=== PATIENT | male | born 1985 | race Caucasian/White ===

== ENCOUNTER 2025-04-30 14:14 | Outpatient (AMB) | payer OTHER, SELFPAY ==
--- OUTSIDE RECORDS SUMMARY | 2025-04-30 14:17 | XMS_ITS | Clinical Summary ---
Author Organization [facility] Facility Address [address] [address] Care Team Providers Care Chemical Worker Name Role Phone Unavailable Primary Care Provider Unavailabl e Social History Tobacco Use Types Packs/Day Years Used Date Smoking Tobacco: Never Assessed Sex and Gender Information Value Date Recorded Sex Assigned at Not on file Legal Sex Male 2:57 PM EDT Gender Identity Not on file Sexual Orientation Not on file Plan of Treatment Upcoming Encounters Date Type Department Care Team (Late st Contact Info) Description 05/27/2025 10:45 AM EDT Office Visit [facility] [address] [phone] Grey Roman MD [address] [phone] Health Maintenance Due Date Last Done Comments Hepatitis B Vaccine (1 of 3 - 19+ 3-dose series) 12/23 Pneumococcal Vaccine: Peds ( 0 to 5 Years) and At-Risk Patients (6 to 49 Years) (1 of 2 - PCV) 12/23/2002 Influenza Vaccine (#1) 2025 [place]
[2025-04-30 14:47] VITALS: BP 132/80; PULSE 65; O2SAT 97; BMI 24.7
--- NOTE | 2025-04-30 14:47 | HO.NEPHOV_ITS ---
Vital Signs 04/30/25 14:47 Height 5 ft 6 in Weight 153 lb BMI 24.7 BP 132/80 Blood Pressure Location Lt brachial Position Sitting Pulse 65 Pulse Source Pulse Oximeter Pulse Oximetry (%) 97 Oxygen Delivery Method Room Air Intake Visit Reasons: ENP: Hypertension- CONF Lawn Service Worker Required: Yes Lawn Service Worker Name: Sushant [id number] Accompanied by: Self / Same As Patient Allergies No Known Allergies Allergy (Verified 04/30/25 14:50) Medication List - Last Reconciled 04/30/25 by Goyo De La Fuente MD amlodipine 10 mg PO DAILY aspirin 81 mg PO DAILY atorvastatin 40 mg PO DAILY fluticasone propionate 50 mcg/actuation sprays intranasal losartan 100 mg PO DAILY spironolactone 25 mg PO DAILY HPI Comments Details: The patient is a 39-year-old male presenting for evaluation of severe hypertension and kidney function assessment. Hypertension has been present since age 13 and is difficult to control. Medication regimen is unclear to the patient. 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 Neurology consultation is pending. New antihypertensive medication prescribed but not yet started due to side effect concerns. Patient will consult healthcare provider upon medication arrival. [facility] Medical History (Updated 05/06/25 @ 06:37 by Kavita Callahan CMA) Hypercholesterolemia Acute CVA (cerebrovascular accident) Family History (Updated 04/30/25 @ 14:49 by RADHA Durham) Father Hypertension Mother Hypertension Review of Systems Const Denies anorexia, Denies fever(s) and Denies weakness Eyes Denies blurry vision Card Denies no additional complaints and Denies dyspnea Resp Reports no additional complaints, Reports cough and Denies dyspnea GI Denies melena and Denies diarrhea Denies hematuria Musc Denies tingling Skin/Breast Denies rash Neuro Reports Abnormal speech present, Reports focal weakness, Denies tingling, Denies tremor(s) and Denies weakness Physical Exam Vital Signs: Last Vital Signs Pulse 65 04/30/25 14:47 BP 132/80 04/30/25 14:47 Pulse Ox 97 04/30/25 14:47 Oxygen Delivery Method Room Air 04/30/25 14:47 BMI result Body Mass Index 24.7 Const General: comfortable Nutritional Appearance: well nourished Orientation/consciousness: patient oriented x3 HEENT Head: No normal to inspection Mouth: moist mucous membranes Neck Neck: Yes supple and Yes no JVD Resp Auscultation: clear to auscultation bilaterally, no rales and rub present Cardio Jugular venous distension: no JVD Palpation: no palpable S3 and no palpable S4 Heart sounds: no rubs GI Palpation (GI): Soft to palpation and nontender Percussion: No Fluid wave present General: Yes no CVA tenderness Back/Spine/Pelvis Back: no CVA tenderness Skin General skin exam: no rashes or lesions noted Neuro Other: Right sided weakness/stiffness General: patient oriented x3 Speech: Abnormal speech present Motor exam (neuro): no asterixis Extrem General: Yes no pedal edema and No clubbing Assessment & Plan Assessment & Plan (1) HTN (hypertension): Code(s): I10 - Essential (primary) hypertension Category: Medical Plan - Arrange 24-hour blood pressure monitoring. Keep current medications Stay on low-sodium diet. - Await neurology consultation for right-sided stiffness. Orders: Orders AMB 24 HR B/P Monitor PLACEMENT 04/30/25 I10 - Essential (primary) hypertension Total Protein Urine Random 4 Weeks I10 - Essential (primary) hypertension UA and rflx microscopic 4 Weeks I10 - Essential (primary) hypertension Basic Metabolic Panel 4 Weeks I10 - Essential (primary) hypertension Creatinine Urine 4 Weeks I10 - Essential (primary) hypertension Coding Level of Care Code New Pt Level 4 (83349) Diagnoses HTN (hypertension) I10
== END 2025-04-30 15:13 | disposition home or self-care (01) ==
LOC: HO.HKA 14:14
PROVIDERS: PCP Internal Medicine; Referring Provider Internal Medicine; Visit Provider Internal Medicine Hypertension Specialist
DX: I10 Essential (primary) hypertension (principal)
CPT/HCPCS: 99204

== ENCOUNTER → 2025-04-30 14:14 | Outpatient (BNVA) | payer OTHER, SELFPAY | PROVIDERS: PCP Internal Medicine; Referring Provider Internal Medicine; Visit Provider Internal Medicine Hypertension Specialist | DX: I10 Essential (primary) hypertension (principal) | CPT/HCPCS: 99202 ==

== ENCOUNTER → 2025-05-11 14:09 | Outpatient (BNVA) | payer OTHER, SELFPAY | PROVIDERS: PCP Internal Medicine; Visit Provider Internal Medicine Hypertension Specialist | DX: I10 Essential (primary) hypertension (principal) | CPT/HCPCS: 93786; 93788 ==

== ENCOUNTER 2025-05-13 08:35 | Outpatient (AMB) | payer OTHER, SELFPAY ==
--- NOTE | 2025-05-13 08:50 | A.OFFVIS_ITS ---
Intake Visit Reasons: acute cva Allergies No Known Allergies Allergy (Verified 04/30/25 14:50) HPI Comments Details: The patient is a 39-year-old male presenting with a follow-up for recent cerebrovascular accident and management of hypertension. Mr. 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 This event took place during admission at [facility]. He is currently maintained on antihypertensive therapy, of which he is taking one undisclosed medication. The stroke resulted in left brain damage causing right-sided motor weakness, which is improving but details on recovery progress are limited. To complete his evaluation, it is necessary to obtain a CD of his brain imaging from the initial hospitalization. The focus of this follow-up includes assessing his recovery, ensuring that his blood pressure remains controlled, and possibly addressing any residual or ongoing neurological deficits that may remain post-hemorrhage. [facility] Medical History (Updated 05/13/25 @ 09:08 by David Lazo MD) Hypercholesterolemia Acute CVA (cerebrovascular accident) Family History (Updated 04/30/25 @ 14:49 by RADHA Durham) Father Hypertension Mother Hypertension Review of Systems Const Details: - Neurological: Reports right hemiparesis. Denies current motor or sensory symptoms on the left side. - Cardiovascular: Reports history of hypertension. Physical Exam Neuro Other: Mental Status: Alert and oriented to person, place, and time. Normal attention. Normal spontaneous speech, fluency, and comprehension. Cranial Nerves: CN II: Visual cooper full to confrontation, visual acuity intact. CN III, IV, : Pupils equal, round, reactive to light and accommodation. Extraocular movements are normal. CN V: Facial sensation is normal. CN VII: Facial movements symmetrical. CN VIII: Hearing intact to bedside conversation is normal. CN IX, X: Palate elevates symmetrically. CN XI: Shoulder shrug and head turn symmetrical. CN XII: Tongue midline without atrophy or fasciculations. Motor: Mild right hemiparesis Gait and Station: Right hemiparetic gait Extrapyramidal: Full facial expressions and blinking. No rigidity. Movements are appropriate with no tremor or abnormality. Speech: Normal; no dysarthria or tremor. Assessment & Plan Assessment & Plan (1) Hemiparesis: Code(s): G81.90 - Hemiplegia, unspecified affecting unspecified side Category: Medical Qualifiers: Hemiparesis etiology: late effect of cerebrovascular disease Cerebrovascular disease type: other nontraumatic intracranial hemorrhage Hemiparesis laterality: right dominant side Qualified Code(s): I69.251 - Hemiplegia and hemiparesis following other nontraumatic intracranial hemorrhage affecting right dominant side Plan Impression: 39 years old man who according to some of the papers sent to me, most of them in Kazakh and difficult to interpret, had a left thalamic bleed when he was admitted in [facility]. Apparently bleed was related to uncontrolled hypertension in his brain scan also revealed evidence of previous microhemorrhages. His exam now revealed mild right hemiparesis. Recommendations: He is advised to obtain his brain scan CD from [facility] for review. In the meantime blood pressure control is recommended. PT OT and rehab should also continue. Coding Level of Care Code New Pt Level 4 (97708) Diagnoses Hemiparesis of right dominant side as late effect of other nontraumatic intracranial hemorrhage I69.251 Hemiparesis etiology: late effect of cerebrovascular disease Cerebrovascular disease type: other nontraumatic intracranial hemorrhage Hemiparesis laterality: right dominant side
--- OUTSIDE RECORDS SUMMARY | 2025-05-13 09:16 | XMS_ITS | Encounter Summary ---
Demographics Address [address] [place] [address] Home Phone Preferred Language es Marital Status Single Yazidi Affiliation Unknown Race Other Race Ethnic Group or Author Organization [employer] Address [address] [place] [address] Support Name Relationship Address Phone Kalie Rodriguez Emergency Contact Unknown [phone] Mis Llanes Unrelated friend Unknown [phone] Megan Guadarrama Mother [address] [place] [address] Care Team Providers Care Cashier General Name Role Phone Andres Rodríguez MD Primary Care Provider [phone] Encounter Details Date Type Department Care Team (Late st Contact Info) Description 05/07/2025 Telephone Internal Medicine - [place] [address] [place] [address] Andres Rodríguez MD [address] [place] [phone] Social History Tobacco Use Types Packs/Day Years Used Date Smoking Tobacco: Never Assessed Health Literacy Answer Date Recorded How often do you need to hav e someone help you when you read instructions, pamphlets, or other written material from your doctor or pharmacy? Sometimes 03/17/2025 Caregiver: How often do you need to have someone help you when you read instructions, pamphlets, or other written material from your doctor or pharmacy? Not on file 03/17/2025 Transportation Answer Date Recorded Has the lack of transportati on kept you from meetings, work, or from getting things needed for daily living? No Has the lack of transportati on kept you from medical appointments or from getting medications? No 02/26/2025 Social Isolation Answer Date Recorded How often do you feel lonely or isolated from th ose around you? Never 03/16/2025 Food Risk Answer Date Recorded Within the past 12 months we worried whether our food would run out before we got money to buy more. Never true 03/02/2025 Within the past 12 months th e food we bought just didn't last and we didn't have money to get more. Never true 03/02/2025 Interpersonal Safety Answer Date Record ed Physical Abuse 02/26/2025 Verbal Abuse 02/26/2025 Sex and Gender Information Value Date Recorded Sex Assigned at Male 02/25/2025 11:40 AM EDT Legal Sex Male 11:38 AM EDT Gender Identity Male 02/25/2025 11:40 AM EDT Sexual Orientation Choose not to disclose 2024 11:40 AM EDT documented as of this encounter Progress Notes * Luci Price MA - 05/11/2025 10:16 AM EDT Submitted for [address] [place] [address] * Jing Raul Walls - 05/07/2025 1:44 PM EDT [employer] new provider or submitter number is [id number] Verify and document patients [place] Health insurance ID # (NOT [facility] ID): [id number] Payor: COMMERCIAL INSURANCE / Plan: COMMERCIAL INSURANCE / Product Type: OTHER Patient mailing address: [address] [place] [address] Telephone Information: Work Phone Not on file. Mobile Not on file. Pt. demographics verified? yes If not accurate, update registration. Is this a NEW request or a RENEWAL? ne Name of treating facility: Dental office Name (first & last) of treating provider? : Dentist What is the medical reason why the patient is seeing the above provider? Exam and teeth cleaning Address/Zip code for treating provider: [address] [place] [address] Phone # for treating provider: [phone] Is the provider in the [facility] network (do they accept [place] insurance)? yes What specialtly is this provider? dental When is the visit scheduled for? May 13, 2025 @ 2:OOPM How often you will be seeing this particular provider? N/a Do you have friends or family who can transport you to this visit? nO If yes, do not complete request. Is there anything stopping you from using public transportation? If yes, explain. : STROKE Is there a medical reason (diagnosis) why you are unable to use public transportation? If yes, explain: STROKE - unable to ambulate without support Does patient carry self-administered oxygen? NO Does patient require door through door or room to room service( ex: member cannot ambulate or wait independently outside their home/facility for transportation. NO Is this is for an Adult Day Program or Suboxone clinic If yes to above what is arrival time n/a and what is departure time n/a If yes to above how many days a week? N/a Do you need a wheelchair van? Yes If you use a wheelchair what is the height, width & length of the wheelchair? Average Do you need an escort to accompany you? If yes, explain why. no Will you have an alternative pick-up address? no Do you have a service animal? no PT DOES NOT NEED RELEASE OF INFORMATION SIGNED documented in this encounter Plan of Treatment Upcoming Encounters Date Type Department Care Team (Late st Contact Info) Description 07/16/2025 9:45 AM EDT Office Visit Internal Medicine - [place] [address] [facility] [address] [place] [phone] Andres Rodríguez MD [address] [place] [phone] documented as of this encounter Visit Diagnoses Not on filedocumented in this encounter Additional Health Concerns Assessment Noted Time PHQ-9 Depression Total Score: 0 03/16/20 4:04 PM EDT documented as of this encounter Care Teams Cashier General Relationship Specialty Start Date End Date Andres Rodríguez MD [address] [place] [id number] PCP - General Internal Medicine 03/09/25 documented as of this encounter
--- OUTSIDE RECORDS SUMMARY | 2025-05-13 09:16 | XMS_ITS | Clinical Summary ---
Author Organization [facility] Address [address] [place] [address] Phone Care Team Providers Care Shipping And Receiving Specialist Name Role Phone Andres Rodríguez MD Primary Care Provider [phone] Allergies No known active allergies Medications fluticasone propionate (FLONASE) 50 mcg/actuation nasal spray Administer 2 sprays into each nostril 1 (one) time each day. Shake gently. Before first use, prime pump. After use, clean tip and replace cap. 16 g 03/17/20 25 Active hydrALAZINE (APRESOLINE) 50 mg tablet Take 1 tablet (50 mg total) by mouth 3 (three) times a day. 90 each 04/12/20 25 Active spironolactone (ALDACTONE) 25 mg tablet Take 1 tablet (25 mg total) by mouth 1 (one) time each day. 90 each 05/05/20 25 026 Active losartan (COZAAR) 100 mg tablet Take 1 tablet (100 mg total) by mouth 1 (one) time each day. 90 each 05/05/20 25 026 Active labetaloL (NORMODYNE) 200 mg tablet Take 1 tablet (200 mg total) by mouth 2 (two) times a day. 60 each 05/05/20 25 026 Active atorvastatin (LIPITOR) 40 mg tablet Take 1 tablet (40 mg total) by mouth at bedtime. 90 each 05/05/20 25 026 Active aspirin 81 mg EC tablet Take 1 tablet (81 mg total) by mouth 1 (one) time each day. 90 each 1 05/05/20 25 026 Active amLODIPine (NORVASC) 10 mg tablet Take 1 tablet (10 mg total) by mouth 1 (one) time each day. 90 tablet 05/05/20 Active amLODIPine (NORVASC) 10 mg tablet Take 1 tablet (10 mg total) by mouth 1 (one) time each day. 30 each 04/12/20 25 025 Discontinued(Re order) carvediloL (COREG) 25 mg tablet Take 1 tablet (25 mg total) by mouth 2 (two) times a day. Next due time listed as 2100 tonight 60 each 04/12/20 25 025 Discontinued losartan (COZAAR) 100 mg tablet Take 1 tablet (100 mg total) by mouth 1 (one) time each day. 30 each 04/12/20 25 025 Discontinued(Re order) aspirin 81 mg EC tablet Take 1 tablet (81 mg total) by mouth 1 (one) time each day. 04/20/20 025 Discontinued(Re order) atorvastatin (LIPITOR) 40 mg tablet Take 1 tablet (40 mg total) by mouth at bedtime. 04/20/20 25 025 Discontinued(Re order) spironolactone (ALDACTONE) 25 mg tablet Take 1 tablet (25 mg total) by mouth 1 (one) time each day. 04/20/20 25 025 Discontinued(Re order) amLODIPine (NORVASC) 10 mg tablet Take 1 tablet (10 mg total) by mouth 1 (one) time each day. 30 each 04/29/20 25 025 Discontinued aspirin 81 mg EC tablet Take 1 tablet (81 mg total) by mouth 1 (one) time each day. 90 each 1 04/29/20 25 025 Discontinued(Re order) atorvastatin (LIPITOR) 40 mg tablet Take 1 tablet (40 mg total) by mouth at bedtime. 90 each 1 04/29/20 25 025 Discontinued(Re order) losartan (COZAAR) 100 mg tablet Take 1 tablet (100 mg total) by mouth 1 (one) time each day. 90 each 04/29/20 25 025 Discontinued(Re order) spironolactone (ALDACTONE) 25 mg tablet Take 1 tablet (25 mg total) by mouth 1 (one) time each day. 90 each 04/29/20 25 025 Discontinued(Re order) labetaloL (NORMODYNE) 200 mg tablet Take 1 tablet (200 mg total) by mouth 2 (two) times a day. 60 each 04/29/20 25 025 Discontinued(Re order) amLODIPine (NORVASC) 10 mg tablet TAKE 1 TABLET BY MOUTH 1 TIME EACH DAY. 90 tablet 04/30/20 25 025 Discontinued(Re order) Active Problems Problem Noted Date Diagnosed Date Intracranial bleed ([facility] V24, [facility] V28) Encounters Date Type Department Care Team Description 05/11/2025 Telephone Internal Medicine [address] [phone] Andres Rodríguez MD 05/07/2025 Telephone Internal Medicine [address] [phone] Andres Rodrígeuz MD 05/06/2025 Telephone Internal Medicine [address] [phone] Andres Rodríguez MD 05/04/2025 Telephone Internal Medicine [address] [phone] Andres Rodríguez MD 04/29/2025 1:30 PM EDT Office Visit Internal Medicine [address] [phone] Andres Rodríguez MD Acute CVA (cerebrovascular accident) ([facility] V24, [facility] V28) (Primary Dx); Primary hypertension; Hypercholesterolemi a; Hospital discharge follow-up 04/27/2025 Telephone Internal Medicine [address] [phone] Andres Rodríguez MD 04/22/2025 Telephone Internal Medicine [facility] [address] [phone] Andres Rodríguez MD 04/21/2025 Telephone Internal Medicine [facility] [address] [phone] Andres Rodríguez MD 04/20/2025 Telephone Internal [address] [phone] Andres Rodríguez MD 04/12/2025 11:15 AM EDT Office Visit Internal [address] [phone] Andres Rodríguez MD Hospital discharge follow-up (Primary Dx); Thalamic hemorrhage with stroke ([facility] V24, [facility] V28); Hypertension, unspecified type; Normocytic anemia; Hearing loss associated with syndrome, unspecified laterality; Pedal edema 04/12/2025 Telephone Internal Medicine [address] [phone] Andres Rodríguez MD 03/17/2025 Plan of Care Documentation [facility] [address] [place] [phone] 03/10/2025 Plan of Care Documentation [facility] [address] [place] [address] 03/03/2025 Plan of Care Documentation [facility] [address] [place] [address] 02/26/2025 1:59 PM EDT - 03/18/2025 12:30 PM EDT Hospital Encounter [facility] [address] [place] [phone] Becky Benavidez DO Intracranial bleed ([facility] V24, [facility] V28) [I62.9] (Primary Dx) Discharge Disposition: Home-Health Care Svc from Last 3 Months Medical History Medical History Date Comments HTN (hypertension) CVA (cerebral vascular accident) (CMS/HCC V24, [facility] V28) Social History Tobacco Use Types Packs/Day Years [...] not to disclose 2024 11:40 AM EDT Obstetrics History Last Filed Vital Signs Vital Sign Reading Time Taken Comments Blood Pressure 160/90 04/29/2025 2:04 PM EDT Pulse 67 04/29/2025 2:04 PM EDT Temperature 36.9 C (98.5 F) 04/29/2025 2:04 PM EDT Respiratory Rate 16 03/18/2025 7:53 AM EDT Oxygen Saturation 98% 04/29/2025 2:04 PM EDT Inhaled Oxygen Concentration - - Weight 67 kg (147 lb 12.8 oz) 04/29/2025 2:04 PM EDT Height 165.1 cm (5' 5 ) 04/29/2025 2:04 PM EDT Body Mass Index 24.6 04/29/2025 2:04 PM EDT Plan of Treatment Upcoming Encounters Date Type Department Care Team (Late st Contact Info) Description 07/16/2025 9:45 AM EDT Office Visit Internal Medicine - [address] [place] [address] Andres Rodríguez MD [facility] [place] [address] Health Maintenance Due Date Last Done Comments DTaP,Tdap,and Td Vaccines (1 - Tdap) 12/23/2002 Hepatitis B Vaccines (1 of 3 - 19+ 3-dose series) 12/23/2002 COVID-19 Vaccine (1 - season) 2024 Cholesterol Screening (Lipid Panel) 02/25/2025 HIV Screening 02/25/2025 Hepatitis C Screening 02/25/2025 Influenza Vaccine (#1) 2025 Social Influencers of Health Screening 03/17/2026 03/17/2025 Hypertension/CHF/CAD Annual BMP Blood Test 03/18/2026 03/18/2025, 03/17/2025, 03/09/2025, Additional history exists Depression Screening Completed 03/16/2025 HIB Vaccines Aged Out No longer eligi ble based on patient's age to complete this topic HPV Vaccines Aged Out No longer eligi ble based on patient's age to complete this topic Hepatitis A Vaccines Aged Out No long er eligible based on patient's age to complete this topic IPV Vaccines Aged Out No longer eligi ble based on patient's age to complete this topic MMR Vaccines Aged Out No longer eligi ble based on patient's age to complete this topic Meningococcal ACWY Vaccine Aged Out N o longer eligible based on patient's age to complete this topic Meningococcal B Vaccine Aged Out No l onger eligible based on patient's age to complete this topic Pneumococcal Vaccine: Pediatrics (0 to 5 Years) and At-Risk Patients (6 to 49 Years) Aged Out No longer eligible based on patient's age to complete this topic RSV Immunization Patients Under 20 months Aged Out No longer eligible based on patient's age to complete this topic Varicella Vaccines Aged Out No longer eligible based on patient's age to complete this topic Procedures Procedure Name Priority Date/Time Associated Diagnosis Comments EXTERNAL CLINICAL LAB 03/24/2025 BASIC METABOLIC PANEL Routine 03/18/2025 6:20 AM EDT LAVENDER - EDTA Routine 03/18/2025 6:17 AM EDT EXTRA TUBES Routine 03/18/2025 6:17 AM EDT MAGNESIUM Add-On 03/17/2025 5:55 AM EDT COMPREHENSIVE METABOLIC PANEL Routine 03/17/2025 5:55 AM EDT COMPLETE BLOOD COUNT Routine 03/17/2025 5:[address] HEAD WO CONTRAST STAT 03/11/2025 3 :42 PM EDT CBC WITH AUTO DIFFERENTIAL Routine 03/09/2025 6:14 AM EDT MAGNESIUM Routine 03/09/2025 6:14 AM EDT CBC AND DIFFERENTIAL Routine 03/09/2025 6:14 AM EDT BASIC METABOLIC PANEL Routine 03/09/2025 6:14 AM EDT COMPLETE BLOOD COUNT Routine 03/04/2025 5:33 AM EDT COMPREHENSIVE METABOLIC PANEL Routine 03/04/2025 5:33 AM EDT COMPREHENSIVE METABOLIC PANEL Routine 03/01/2025 5:55 AM EDT COMPLETE BLOOD COUNT Routine 03/01/2025 5:55 AM EDT LAVENDER - EDTA Routine 02/28/2025 11:48 AM EDT EXTRA TUBES Routine 02/28/2025 11:48 AM EDT MAGNESIUM Routine 02/28/2025 11:48 AM EDT COMPREHENSIVE METABOLIC PANEL Add-On 02/27/2025 9:11 AM EDT COMPLETE BLOOD COUNT Add-On 02/27/2025 9:11 AM EDT LAVENDER - EDTA Routine 02/27/2025 9:11 AM EDT EXTRA TUBES Routine 02/27/2025 9:11 AM EDT THYROID STIMULATING HORMONE WITH REFLEX TO FREE T4 AND FREE T3 Routine 02/27/2025 9:11 AM EDT MAGNESIUM Routine 02/27/2025 9:11 AM EDT from Last 3 Months Results * External clinical lab (03/24/2025) Provider [facility] LAB BLOOD ORDERABLES Fin al Result * Basic metabolic panel (03/18/2025 6:20 AM EDT) Only the most recent of2 resultswithin the time period is included. Sodium 144 133 - 145 mmol/L LAB CHEMISTRY METHOD 03/18/2025 8:14 AM [facility] Potassium 3.7 3.5 - 5.5 mmol/L LAB CHEMISTRY METHOD 03/18/2025 8:14 AM [facility] Chloride 109 96 - 110 mmol/L LAB CHEMISTRY METHOD 03/18/2025 8:14 AM [facility] CO2 32 21 - 32 mmol/L LAB CHEMISTRY METHOD 03/18/2025 8:14 AM [facility] Anion Gap 3 3 - 11 LAB CHEMISTRY METHOD 03/18/2025 8:14 AM [facility] Glucose 86 70 - 100 mg/dL LAB CHEMISTRY METHOD 03/18/2025 8:14 AM [facility] BUN 16 5 - 25 mg/dL LAB CHEMISTRY METHOD 03/18/2025 8:14 AM EDT [facility] Creatinine 0.93 0.70 - 1.30 mg/dL LAB CHEMISTRY METHOD 03/18/2025 8:14 AM EDT [facility] eGFR 106 >=60 mL/min/1. 73m2 LAB CHEMISTRY METHOD 03/18/2025 8:14 AM EDT [facility] Comment:Calculation based on the Chronic Kidney Disease Epidemiology Collaboration (CKD-EPI) equation refit without adjustment for race. BUN/Creatinine Ratio 17.2 LAB CHEMISTRY METHOD 03/18/2025 8:14 AM EDT [facility] Calcium 9.1 8.5 - 10.5 mg/dL LAB CHEMISTRY METHOD 03/18/2025 8:14 AM EDT [facility] Blood Venous blood specimen / Unknown Venipuncture / Unknown 03/18/2025 6:20 AM EDT 03/18/2025 6:56 AM EDT us Anjali THORNTON LAB BLOOD ORDERABLES Final R esult [facility] [address] [place] [address], [place] [phone] * Lavender tube (03/18/2025 6:17 AM EDT) Only the most recent of3 resultswithin the time period is included. Extra Tube Hold for add-ons. 03/18/2025 8:01 AM EDT [facility] Comment:Auto resulted. Blood Venous blood specimen / Unknown 03/18/2025 6:17 AM EDT 03/18/2025 6:57 AM EDT us Becky Benavidez DO LAB BLOOD ORDERABLES Justine l Result [facility] [address] [place] [address], [place] [phone] * Magnesium (03/17/2025 5:55 AM EDT) Only the most recent of4 resultswithin the time period is included. [facility] Magnesium 2.1 1.9 - 2.6 mg/dL LAB CHEMISTRY METHOD 03/17/2025 7:39 AM EDT [facility] Blood Venous blood specimen / Unknown Venipuncture / Unknown 03/17/2025 5:55 AM EDT 03/17/2025 6:29 AM EDT us Anjali THORNTON LAB BLOOD ORDERABLES Final R esult [facility] [address] [place] [address], [place] [phone] * (ABNORMAL) Comprehensive metabolic panel (03/17/2025 5:55 AM EDT) Only the most recent of4 resultswithin the time period is included. [facility] Sodium 139 133 - 145 mmol/L LAB CHEMISTRY METHOD 03/17/2025 6:59 AM [facility] Potassium 3.3(L) 3.5 - 5.5 mmol/L LAB CHEMISTRY METHOD 03/17/2025 6:59 AM [facility] Chloride 104 96 - 110 mmol/L LAB CHEMISTRY METHOD 03/17/2025 6:59 AM [facility] CO2 30 21 - 32 mmol/L LAB CHEMISTRY METHOD 03/17/2025 6:59 AM [facility] Anion Gap 5 3 - 11 LAB CHEMISTRY METHOD 03/17/2025 6:59 AM [facility] Glucose 83 70 - 100 mg/dL LAB CHEMISTRY METHOD 03/17/2025 6:59 AM [facility] BUN 24 5 - 25 mg/dL LAB CHEMISTRY METHOD 03/17/2025 6:59 AM [facility] Creatinine 1.08 0.70 - 1.30 mg/dL LAB CHEMISTRY METHOD 03/17/2025 6:59 AM [facility] eGFR 88 >=60 mL/min/1. 73m2 LAB CHEMISTRY METHOD 03/17/2025 6:59 AM [facility] Comment:Calculation based on the Chronic Kidney Disease Epidemiology Collaboration (CKD-EPI) equation refit without adjustment for race. BUN/Creatinine Ratio 22.2 LAB CHEMISTRY METHOD 03/17/2025 6:59 AM T [facility] Calcium 9.7 8.5 - 10.5 mg/dL LAB CHEMISTRY METHOD 03/17/2025 6:59 AM [facility] AST (SGOT) 15 10 - 42 unit/L LAB CHEMISTRY METHOD 03/17/2025 6:59 AM [facility] ALT (SGPT) 51 10 - 60 unit/L LAB CHEMISTRY METHOD 03/17/2025 6:59 AM [facility] Alkaline Phosphatase 82 42 - 121 unit/L LAB CHEMISTRY METHOD 03/17/2025 6:59 AM [facility] Total Protein 7.2 6.0 - 8.0 g/dL LAB CHEMISTRY METHOD 03/17/2025 6:59 AM [facility] Albumin 3.9 3.2 - 5.0 g/dL LAB CHEMISTRY METHOD 03/17/2025 6:59 AM [facility] Total Bilirubin 0.4 0.0 - 1.4 mg/dL LAB CHEMISTRY METHOD 03/17/2025 6:59 AM [facility] Blood Venous blood specimen / Unknown Venipuncture / Unknown 03/17/2025 5:55 AM EDT 03/17/2025 6:29 AM EDT us Anjali THORNTON LAB BLOOD ORDERABLES Final R esult [facility] [address] [place] [address], * (ABNORMAL) Complete blood count (03/17/2025 5:54 AM EDT) Only the most recent of4 resultswithin the time period is included. [facility] WBC 9.8 4.8 - 10.8 K/mcL LAB HEMETOLOGY METHOD 03/17/2025 6:43 AM EDT [facility] RBC 4.00(L) 4.50 - 5.50 M/mcL LAB HEMETOLOGY METHOD 03/17/2025 6:43 AM EDT [facility] Hemoglobin 11.7(L) 13.5 - 17.5 g/dL LAB HEMETOLOGY METHOD 03/17/2025 6:43 AM EDT [facility] Hematocrit 35.2(L) 42.0 - 54.0 % LAB HEMETOLOGY METHOD 03/17/2025 6:43 AM EDT [facility] MCV 88.7 79.0 - 98.0 FL LAB HEMETOLOGY METHOD 03/17/2025 6:43 AM EDT [facility] MCH 29.5 27.0 - 32.0 pcg LAB HEMETOLOGY METHOD 03/17/2025 6:43 AM EDT [facility] MCHC 33.2 32.0 - 37.0 g/dL LAB HEMETOLOGY METHOD 03/17/2025 6:43 AM EDT [facility] RDW 11.9 11.0 - 15.0 % LAB HEMETOLOGY METHOD 03/17/2025 6:43 AM EDT [facility] Platelets 230 130 - 400 K/mcL LAB HEMETOLOGY METHOD 03/17/2025 6:43 AM EDT [facility] MPV 9.7 7.0 - 11.0 FL LAB HEMETOLOGY METHOD 03/17/2025 6:43 AM EDT [facility] NRBC 0.0 <1.0 % LAB HEMETOLOGY METHOD 03/17/2025 6:43 AM EDT [facility] NRBC Absolute 0.00 <0.10 K/mcL LAB HEMETOLOGY METHOD 03/17/2025 6:43 AM EDT [facility] Blood Venous blood specimen / Unknown Venipuncture / Unknown 03/17/2025 5:54 AM EDT 03/17/2025 6:31 AM EDT us Anjali THORNTON LAB BLOOD ORDERABLES Final R esult [facility] [address] [place] [address], [place] [phone] * CT Head wo Contrast (03/11/2025 3:42 PM EDT) Anatomical Region Laterality Modality Head and Neck Computed Tomogra phy 03/11/2025 3:47 PM EDT Impressions 03/11/2025 3:50 PM EDT There is no comparison examinations available at time of interpretation in this patient with given history of intracranial hemorrhage. Subacute left thalamic hemorrhage. No acute hemorrhage is evident. -------- FINAL REPORT -------- Dictated By: Satya Ovalle Dictated Date: 03/11/2025 15:47 ET Assigned Physician: Satya Ovalle Reviewed and Electronically Signed By: Satya Ovalle Signed Date: 03/11/2025 15:50 ET Workstation ID: [id number] Transcribed By: Self Edit Transcribed Date: 03/11/2025 15:47 ET Narrative 03/11/2025 3:50 PM EDT PROCEDURE: HEAD CT INDICATION: Parenchymal hemorrhage, follow-up new onset blurred vision with known recent Left basal ganglia/thalamic intraparenchymal hemorrhage TECHNIQUE: CT of the head without intravenous contrast. Multiplanar reformats. The examination was performed utilizing dose reduction techniques. Total DLP 809 COMPARISON: None available at time of interpretation. FINDINGS: There is a region of mixed density in the left thalamus compatible with given history of subacute/chronic hemorrhage with trace surrounding vasogenic edema.. There is no acute hemorrhage evident. There is no comparison examination of interpretation. No significant white matter disease No hydrocephalus. Cavum septum lucidum. Visualized paranasal sinuses are clear. Mastoid air cells are clear. No calvarial fracture. Procedure Note Satya Ovalle MD - 03/11/2025 PROCEDURE: HEAD CT INDICATION: Parenchymal hemorrhage, follow-up new onset blurred vision with known recent Left basal ganglia/thalamicintraparenchymal hemorrhage TECHNIQUE: CT of the head without intravenous contrast. Multiplanarreformats. The examination was performed utilizing dose reductiontechniques. Total DLP 809 COMPARISON: None available at time of interpretation. FINDINGS: There is a region of mixed density in the left thalamus compatible withgiven history of subacute/chronic hemorrhage with trace surroundingvasogenic edema.. There is no acute hemorrhage evident. There is nocomparison examination of interpretation. No significant white matter disease No hydrocephalus. Cavum septum lucidum. Visualized paranasal sinuses are clear. Mastoid air cells are clear. No calvarial fracture. IMPRESSION: There is no comparison examinations available at time of interpretation inthis patient with given history of intracranial hemorrhage. Subacute left thalamic hemorrhage. No acute hemorrhage is evident. -------- FINAL REPORT -------- Dictated By: Satya Ovalle Dictated Date: 03/11/2025 15:47 ET Assigned Physician: Satya Ovalle Reviewed and Electronically Signed By: Satya Ovalle Signed Date: 03/11/2025 15:50 ET Workstation ID: [id number] Transcribed By: Self Edit Transcribed Date: 03/11/2025 15:[address] PROCEDURES Final Resul t * (ABNORMAL) CBC auto differential (03/09/2025 6:14 AM EDT) WBC 10.1 4.8 - 10.8 [facility] HEMETOLOGY METHOD 03/09/2025 7:13 AM EDT [facility] RBC 4.00(L) 4.50 - 5.50 [facility] LAB HEMETOLOGY METHOD 03/09/2025 7:13 AM [facility] Hemoglobin 12.2(L) 13.5 - 17.5 g/dL LAB HEMETOLOGY METHOD 03/09/2025 7:13 AM [facility] Hematocrit 35.6(L) 42.0 - 54.0 % LAB HEMETOLOGY METHOD 03/09/2025 7:13 AM [facility] MCV 88.6 79.0 - 98.0 FL LAB HEMETOLOGY METHOD 03/09/2025 7:13 AM [facility] MCH 30.3 27.0 - 32.0 pcg LAB HEMETOLOGY METHOD 03/09/2025 7:13 AM [facility] MCHC 34.3 32.0 - 37.0 g/dL LAB HEMETOLOGY METHOD 03/09/2025 7:13 AM [facility] RDW 11.6 11.0 - 15.0 % LAB HEMETOLOGY METHOD 03/09/2025 7:13 AM [facility] Platelets 278 130 - 400 K/mcL LAB HEMETOLOGY METHOD 03/09/2025 7:13 AM [facility] MPV 9.6 7.0 - 11.0 FL LAB HEMETOLOGY METHOD 03/09/2025 7:13 AM [facility] NRBC 0.0 <1.0 % LAB HEMETOLOGY METHOD 03/09/2025 7:13 AM [facility] NRBC Absolute 0.00 <0.10 K/mcL LAB HEMETOLOGY METHOD 03/09/2025 7:13 AM [facility] Neutrophils Relative 46.6 % LAB HEMETOLOGY METHOD 03/09/2025 7:13 AM [facility] Lymphocytes Relative 39.5 % LAB HEMETOLOGY METHOD 03/09/2025 7:13 AM [facility] Monocytes Relative 10.8 % LAB HEMETOLOGY METHOD 03/09/2025 7:13 AM EDT [facility] Eosinophils Relative 2.4 % LAB HEMETOLOGY METHOD 03/09/2025 7:13 AM EDT [facility] Basophils Relative 0.4 % LAB HEMETOLOGY METHOD 03/09/2025 7:13 AM EDT [facility] Immature Granulocytes Relative 0.3 % LAB HEMETOLOGY METHOD 03/09/2025 7:13 AM EDT [facility] Neutrophils Absolute 4.68 1.50 - 7.00 K/mcL LAB HEMETOLOGY METHOD 03/09/2025 7:13 AM EDT [facility] Lymphocytes Absolute 3.97 1.00 - 5.00 K/mcL LAB HEMETOLOGY METHOD 03/09/2025 7:13 AM EDT [facility] Monocytes Absolute 1.09(H) 0.20 - 1.00 K/mcL LAB HEMETOLOGY METHOD 03/09/2025 7:13 AM EDT [facility] Eosinophils Absolute 0.24 0.00 - 0.50 K/mcL LAB HEMETOLOGY METHOD 03/09/2025 7:13 AM EDT [facility] Basophils Absolute 0.04 0.00 - 0.20 K/mcL LAB HEMETOLOGY METHOD 03/09/2025 7:13 AM EDT [facility] Immature Granulocytes Absolute 0.03 0.00 - 0.03 K/mcL LAB HEMETOLOGY METHOD 03/09/2025 7:13 AM [facility] Blood Venous blood specimen / Unknown Venipuncture / Unknown 03/09/2025 6:14 AM EDT 03/09/2025 6:35 AM EDT us Missy Tapia NP LAB BLOOD ORDERABLES Final Resul t [facility] [address] [place] [address], [place] [phone] * Thyroid stimulating hormone with reflex to free t4 and free t3 (02/27/2025 9:11 AM EDT) TSH 0.60 0.40 - 4.00 mcIU/mL LAB CHEMISTRY METHOD 02/27/2025 11:03 AM EDT [facility] Blood Venous blood specimen / Unknown Venipuncture / Unknown 02/27/2025 9:11 AM EDT 02/27/2025 9:18 AM EDT Terrie Quinn NP LAB BLOOD ORDERABLES Final Result [facility] [address] [place] [address], [place] [phone] from Last 3 Months Insurance [facility] Advance Directives Documents on File Type Date Recorded Patient Cloth Tester Expl anation Advance Directives and Living Will 02/26/2025 3:17 PM HEALTH CARE PROXY * Full Code - Default (Latest Code Status on File) Date Activated Date Inactivated Comments 02/26/2025 3:42 PM 03/18/2025 2:58 PM This is order is used when code status has not been discussed with the patient, or code status is otherwise unknown/unconfirmed To update the patient's code status, place a code status order. Do not modify or discontinue any currently active code status orders. Care Teams Shipping And Receiving Specialist Relationship Specialty Start Date End Date Andres Rodríguez MD [address] [place] [address] PCP - General Internal Medicine 03/09/25
--- OUTSIDE RECORDS SUMMARY | 2025-05-13 09:16 | XMS_ITS | Encounter Summary ---
Demographics Address [address] [place] [address] Home Phone Preferred Language es Marital Status Single Scientology Affiliation Unknown Race Other Race Ethnic Group or Author Organization [employer] Address [address] [place] [address] Support Name Relationship Address Phone Kalie Rodriguez Emergency Contact Unknown [phone] Mis Llanes Unrelated friend Unknown [phone] Megan Guadarrama Mother [address] [place] [address] Care Team Providers Care Agricultural Lender Name Role Phone Andres Rodríguez MD Primary Care Provider [phone] Reason for Visit * Reason Onset Date Comments Referral(manufacturing operations manager) 05/04/2025 Encounter Details Date Type Department Care Team ([facility] st Contact Info) Description 05/04/2025 Telephone Internal Medicine - [place] [address] [facility] [address] [place] [phone] Andres Rodríguez MD [address] [place] [phone] Social History Tobacco Use Types Packs/Day Years [...] as of this encounter Progress Notes * Gwen Mathew MA - 05/04/2025 2:25 PM EDT Spoke with pt. Pt requested this referral on his appt with PCP. Can you placed referral for ophtalmology? Please advice. * Elis Emerson - 05/04/2025 12:31 PM EDT Pt called and requested a referral to a manufacturing operations manager because he needs glasses due to not seeing well. Cb# [phone] documented in this encounter Plan of Treatment Upcoming Encounters Date Type Department Care Team (Late st Contact Info) Description 07/16/2025 9:45 AM EDT Office Visit Internal Medicine - [place] 175 [facility] 200 [place] [address] Andres Rodríguez MD [address] [place] [phone] documented as of this encounter Visit Diagnoses Not on filedocumented in this encounter Additional Health Concerns Assessment Noted Time PHQ-9 Depression Total Score: 0 03/16/20 25 4:04 PM EDT documented as of this encounter Care Teams Agricultural Lender Relationship Specialty Start Date End Date Andres Rodríguez MD 175 [facility] 200 [place] [address] PCP - General Internal Medicine 03/09/25 documented as of this encounter
--- OUTSIDE RECORDS SUMMARY | 2025-05-13 09:16 | XMS_ITS | Clinical Summary ---
Author Organization [facility] Address [address] [address] Care Team Providers Care Community Relations Assistant Name Role Phone Unavailable Primary Care Provider [...] Visit [facility] [address] [phone] Grey Roman MD [address] [phone] Health Maintenance Due Date Last Done Comments Hepatitis B Vaccine (1 of 3 - 19+ 3-dose series) 12/23 Pneumococcal Vaccine: Peds ( 0 to 5 Years) and At-Risk Patients (6 to 49 Years) (1 of 2 - PCV) 12/23/2002 Influenza Vaccine (#1) 2025 Insurance Medicaid [facility] Medicaid
--- OUTSIDE RECORDS SUMMARY | 2025-05-13 09:16 | XMS_ITS | Encounter Summary ---
Demographics Address [address] [place] [address] Home Phone Preferred Language es Marital Status Single Orthodoxy Affiliation Unknown Race Other Race Ethnic Group or Author Organization [employer] Address [address] [place] [address] Support Name Relationship Address Phone Kalie Rodriguez Emergency Contact Unknown [phone] Mis Llanes Unrelated friend Unknown [phone] Megan Guadarrama Mother [address] [place] [address] Care Team Providers Care Well Shooter Name Role Phone Andres Rodríguez MD Primary Care Provider [phone] Encounter Details Date Type Department Care Team (Late st Contact Info) Description 05/11/2025 Telephone Internal Medicine - [place] [address] [facility] [address] [place] [address] Andres Rodríguez MD [address] [place] [address] Social History Tobacco Use Types Packs/Day Years [...] as of this encounter Progress Notes * Jing Walls - 05/11/2025 9:44 AM EDT Patient called states PCP referred him to ent - assumed our office will schedule appt for him Howerver via supervisor special education provided [address] - phone number to call himself to schedule FYI documented in this encounter Plan of Treatment Upcoming Encounters Date Type Department Care Team (Late st Contact Info) Description 07/16/2025 9:45 AM EDT Office Visit Internal Medicine - [place] 175 [facility] 200 [place] [address] Andres Rodríguez MD [address] [place] [phone] documented as of this encounter Visit Diagnoses Not on filedocumented in this encounter Additional Health Concerns Assessment Noted Time PHQ-9 Depression Total Score: 0 03/16/20 25 4:04 PM EDT documented as of this encounter Care Teams Well Shooter Relationship Specialty Start Date End Date Andres Rodríguez MD [address] [address] PCP - General Internal Medicine 03/09/25 documented as of this encounter
== END 2025-05-13 09:06 | disposition home or self-care (01) ==
LOC: HO.HSM 08:36
PROVIDERS: PCP Internal Medicine; Visit Provider Psychiatry & Neurology Neurology
DX: I69.251 Hemiplegia and hemiparesis following other nontraumatic intracranial hemorrhage affecting right dominant side (principal)
CPT/HCPCS: 99204

== ENCOUNTER → 2025-05-13 08:35 | Outpatient (BNVA) | payer OTHER, SELFPAY | PROVIDERS: PCP Internal Medicine; Visit Provider Psychiatry & Neurology Neurology | DX: I69.251 Hemiplegia and hemiparesis following other nontraumatic intracranial hemorrhage affecting right dominant side (principal) | CPT/HCPCS: 99202 ==

== ENCOUNTER 2025-05-24 10:48 | Outpatient (AMB) | payer OTHER, SELFPAY ==
[2025-05-24 11:03] VITALS: BP 110/78; PULSE 74; O2SAT 100; BMI 25.0
--- NOTE | 2025-05-24 11:03 | HO.NEPHOV ---
Vital Signs 05/24/25 11:03 Height 5 ft 6 in Weight 155 lb BMI 25.0 BP 110/78 Blood Pressure Location Rt brachial Position Sitting Pulse 74 Pulse Source Pulse Oximeter Pulse Oximetry (%) 100 Oxygen Delivery Method Room Air Intake Visit Reasons: BPM Results Follow up-Conf In Flight Refueling System Repairer Required: Yes In Flight Refueling System Repairer Name: Minh [id number] Accompanied by: Self / Same As Patient Allergies No Known Allergies Allergy (Verified 04/30/25 14:50) Medication List - Last Reconciled 05/24/25 by Goyo De La Fuente MD amlodipine 10 mg PO DAILY aspirin 81 mg PO DAILY atorvastatin 40 mg PO DAILY fluticasone propionate 50 mcg/actuation sprays intranasal labetalol 200 mg PO BID losartan 100 mg PO DAILY spironolactone 25 mg PO DAILY HPI Comments Details: The patient is a 39-year-old male presenting for evaluation of severe hypertension and kidney function assessment. Hypertension has been present since age 13 and is difficult to control. Medication regimen is unclear to the patient. 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 Neurology consultation is pending. New antihypertensive medication prescribed but not yet started due to side effect concerns. Patient will consult healthcare provider upon medication arrival. 05/24/25 ABPM reviewed [facility] Medical History (Updated 05/13/25 @ 09:08 by David Lazo MD) Hypercholesterolemia Acute CVA (cerebrovascular accident) Family History Father Hypertension Mother Hypertension Physical Exam Vital Signs: Last Vital Signs Pulse 74 05/24/25 11:03 BP 110/78 05/24/25 11:03 Pulse Ox 100 05/24/25 11:03 Oxygen Delivery Method Room Air 05/24/25 11:03 BMI result Body Mass Index 25.0 Office Procedures 24 B/P Monitor Interpretation Details: Well controlled HTN No white coat effect CPT: 30838 24 Hour Blood Pressure Monitor Reading Procedure code (CPT) selection complete Assessment & Plan Assessment & Plan (1) HTN (hypertension): Code(s): I10 - Essential (primary) hypertension Category: Medical Plan - Arrange 24-hour blood pressure monitoring. Keep current medications Stay on low-sodium diet. - Await neurology consultation for right-sided stiffness. 05/24/25 BAsed on ABPM, BP is well controlled No change in meds today Renal function is stable Orders: Orders AMB 24 HR B/P Monitor INTERPRETATION Today I10 - Essential (primary) hypertension Coding Level of Care Code Est Pt Level 4 (61332) Diagnoses HTN (hypertension) I10 CPT Codes - CPT: 81718 24 Hour Blood Pressure Monitor Reading ([id number])
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
--- OUTSIDE RECORDS SUMMARY | 2025-05-24 13:09 | XMS_ITS | Encounter Summary ---
Demographics Address [address] [place] [address] Home Phone Preferred Language es Marital Status Single Taoist Affiliation Unknown Race Other Race Ethnic Group or Author Organization [employer] Address [address] [place] [address] Support Name Relationship Address Phone Kalie Rodriguez Emergency Contact Unknown [phone] Mis Llanes Unrelated friend Unknown [phone] Megan Guadarrama Mother [address] [place] [address] Care Team Providers Care Recreation Establishment Manager Name Role Phone Andres Rodríguez MD Primary Care Provider Encounter Details Date Type Department Care Team (Late st Contact Info) Description 05/13/2025 Telephone Internal Medicine - [place] [address] [place] [address] Andres Rodríguez MD [address] [place] [address] Social History Tobacco Use Types Packs/Day Years [...] encounter Progress Notes * Jing Walls - 05/14/2025 10:17 AM EDT Vna called - check with PCP if patient would benefit Occupational therapy Physical therapy as an out patient - request from [facility]. If so order to be placed documented in this encounter Plan of Treatment Upcoming Encounters Date Type Department Care Team (Late st Contact Info) Description 07/16/2025 9:45 AM EDT Office Visit Internal Medicine - [place] [address] [phone] Andres Rodríguez MD [address] [address] documented as of this encounter Visit Diagnoses Not on filedocumented in this encounter Additional Health Concerns Assessment Noted Time PHQ-9 Depression Total Score: 0 03/16/20 4:04 PM EDT documented as of this encounter Care Teams Recreation Establishment Manager Relationship Specialty Start Date End Date Andres Rodríguez MD [address] [address] PCP - General Internal Medicine 03/09/25 documented as of this encounter
--- OUTSIDE RECORDS SUMMARY | 2025-05-24 13:09 | XMS_ITS | Clinical Summary ---
Author Organization [facility] Address [address] [address] Care Team Providers Care Tire Layer Name Role Phone Andres Rodríguez MD Primary Care Provider [phone] Social History Tobacco Use Types Packs/Day Years [...] Visit [facility] [address] [phone] Grey Roman MD [address] [phone] Health Maintenance Due Date Last Done Comments Hepatitis B Vaccine (1 of 3 - 19+ 3-dose series) 12/23 Pneumococcal Vaccine: Peds ( 0 to 5 Years) and At-Risk Patients (6 to 49 Years) (1 of 2 - PCV) 12/23/2002 Influenza Vaccine (#1) 2025 Insurance Medicaid [place] [facility] Medicaid Care Teams Tire Layer Relationship Specialty Start Date End Date Andres Rodríguez MD 175 [facility] 200 [place] [address] PCP - General Internal Medicine 05/20/25
--- OUTSIDE RECORDS SUMMARY | 2025-05-24 13:09 | XMS_ITS | Encounter Summary ---
Demographics Address [address] [place] [address] Home Phone Preferred Language es Marital Status Single Catholic Affiliation Unknown Race Other Race Ethnic Group or Author Organization [employer] Address [address] [place] [address] Support Name Relationship Address Phone Kalie Rodriguez Emergency Contact Unknown [phone] Mis Llanes Unrelated friend Unknown [phone] Megan Guadarrama Mother [address] [place] [address] Care Team Providers Care Risk Investigator Name Role Phone Andres Rodríguez MD Primary Care Provider [phone] Encounter Details Date Type Department Care Team (Late st Contact Info) Description 05/11/2025 Telephone Internal Medicine - [place] [address] [place] [address] Andres Rodríguez MD [address] [place] [address] Social History Tobacco Use Types Packs/Day Years [...] will schedule appt for him Howerver via staff reporter provided [address] - phone number to call himself to schedule FYI documented in this encounter Plan of Treatment Upcoming Encounters Date Type Department Care Team (Late st Contact Info) Description 07/16/2025 9:45 AM EDT Office Visit Internal Medicine - [place] 175 [facility] 200 [place] [address] Andres Rodríguez MD [address] [address] documented as of this encounter Visit Diagnoses Not on filedocumented in this encounter Additional Health Concerns Assessment Noted Time PHQ-9 Depression Total Score: 0 03/16/20 4:04 PM EDT documented as of this encounter Care Teams Risk Investigator Relationship Specialty Start Date End Date Andres Rodríguez MD [address] [address] PCP - General Internal Medicine 03/09/25 documented as of this encounter
--- OUTSIDE RECORDS SUMMARY | 2025-05-24 13:09 | XMS_ITS | Encounter Summary ---
Demographics Address [address] [place] [address] Home Phone Preferred Language es Marital Status Single Mormonism Affiliation Unknown Race Other Race Ethnic Group or Author Organization [employer] Address [address] [place] [address] Support Name Relationship Address Phone Kalie Rodriguez Emergency Contact Unknown [phone] Mis Llanes Unrelated friend Unknown [phone] Megan Guadarrama Mother [address] [place] [address] Care Team Providers Care Garbage Depot Worker Name Role Phone Andres Rodríguez MD Primary Care Provider [phone] Reason for Visit * Reason Onset Date Comments Request For Order(s) 05/19/2025 Ronald Cavanaugh al Home Care Order 04/21/25 Encounter Details Date Type Department Care Team (Late st Contact Info) Description 05/19/2025 Telephone Internal Medicine - [place] [address] [facility] [address] [place] [address] Juana Lopes [place] Social History Tobacco Use Types Packs/Day Years [...] as of this encounter Progress Notes * Juana Lopes MA - 05/21/2025 1:38 PM EDT Re-Faxed Order * Jing Walls - 05/21/2025 10:25 AM EDT [facility]ide from [facility] - please look at the order that was signed and faxed Does it include order that patient is requesting out patient physical and occupational therapy Contact Fide [phone] * Juana Lopes MA - 05/20/2025 7:01 AM EDT [facility] Care Scanned into chart and faxed [phone] * Juana Lopes MA - 05/19/2025 9:43 AM EDT [facility] Order 04/21/25 Please sign & fax [phone] documented in this encounter Plan of Treatment Upcoming Encounters Date Type Department Care Team (Late st Contact Info) Description 07/16/2025 9:45 AM EDT Office Visit Internal Medicine - [address] [place] [address] Andres Rodríguez MD [address] [address] documented as of this encounter Visit Diagnoses Not on filedocumented in this encounter Additional Health Concerns Assessment Noted Time PHQ-9 Depression Total Score: 0 03/16/20 25 4:04 PM EDT documented as of this encounter Care Teams Garbage Depot Worker Relationship Specialty Start Date End Date Andres Rodríguez MD [address] [address] PCP - General Internal Medicine 03/09/25 documented as of this encounter
--- OUTSIDE RECORDS SUMMARY | 2025-05-24 13:09 | XMS_ITS | Clinical Summary ---
Author Organization [facility] Address [address] [place] [address] Phone Care Team Providers Care Roll Hauler Name Role Phone Andres Rodríguez MD Primary Care Provider [phone] Allergies No known active allergies Medications fluticasone [...] Problem Noted Date Diagnosed Date Intracranial bleed ([facility] V24, [facility] V28) Encounters Date Type Department Care Team Description 05/19/2025 Telephone Internal Medicine [address] [address] Juana Lopes [place] 05/14/2025 Telephone Internal Medicine [address] [address] Andres Rodríguez MD 05/13/2025 [place] [facility] [address] [address] Andres Rodríguez MD 05/11/2025 Telephone Internal Medicine [address] [address] Andres Rodríguez MD 05/07/2025 Telephone Internal Medicine [address] [address] Andres Rodríguez MD 05/06/2025 Telephone Internal Medicine [address] [address] Andres Rodríguez MD 05/04/2025 Telephone Internal Medicine [address] [address] Andres Rodríguez MD 04/29/2025 1:30 PM EDT Office Visit Internal Medicine [facility] [address] [address] Andres Rodríguez MD Acute CVA (cerebrovascular accident) (CMS/HCC V24, CMS/HCC V28) (Primary Dx); Primary hypertension; Hypercholesterolemi a; Hospital discharge follow-up 04/27/2025 Telephone Internal Medicine [facility] [address] [address] Andres Rodríguez MD 04/22/2025 Telephone Internal Medicine [address] [address] Andres Rodríguez MD 04/21/2025 Telephone Internal Medicine [address] [address] Andres Rodríguez MD 04/20/2025 Telephone Internal [address] [address] Andres Rodríguez MD 04/12/2025 11:15 AM EDT Office Visit Internal [address] [address] Andres Rodríguez MD Hospital discharge follow-up (Primary Dx); Thalamic hemorrhage with stroke (CMS/HCC V24, CMS/HCC V28); Hypertension, unspecified type; Normocytic anemia; Hearing loss associated with syndrome, unspecified laterality; Pedal edema 04/12/2025 Telephone Internal Medicine [address] [address] Andres Rodríguez MD 03/17/2025 Plan of Care Documentation [facility] [address] [place] [address] 03/10/2025 Plan of Care Documentation [facility] [address] [place] [address] 03/03/2025 Plan of Care Documentation [facility] [address] [place] [address] 02/26/2025 1:59 PM EDT - 03/18/2025 12:30 PM EDT Hospital Encounter [facility] [address] [place] [address] Becky Benavidez DO Intracranial bleed ([facility] V24, [facility] V28) [I62.9] (Primary Dx) Discharge Disposition: Home-Health Care Svc from Last 3 Months Medical History Medical History Date Comments HTN (hypertension) CVA (cerebral vascular accident) ([facility] V24, [facility] [place]/[facility] V28) Social History Tobacco Use Types [...] AM EDT Office Visit Internal Medicine - [place] 175 [facility] [address] [place] [phone] Andres Rodríguez MD 175 [facility] [address] [place] [address] Health Maintenance Due Date Last Done Comments DTaP,Tdap,and Td Vaccines (1 - Tdap) 12/23/2002 Hepatitis B Vaccines (1 of 3 - 19+ 3-dose series) 12/23/2002 Cholesterol Screening (Lipid Panel) 02/25/2025 HIV Screening 02/25/2025 Hepatitis C Screening 02/25/2025 COVID-19 Vaccine ( - season) 2025 Influenza Vaccine (#1) 2025 Social Influencers of [...] mmol/L LAB CHEMISTRY METHOD 03/18/2025 8:14 AM EDT [facility] Potassium 3.7 3.5 - 5.5 mmol/L LAB CHEMISTRY METHOD 03/18/2025 8:14 AM EDT [facility] Chloride 109 96 - 110 mmol/L LAB CHEMISTRY METHOD 03/18/2025 8:14 AM [facility] CO2 32 21 - 32 mmol/L LAB CHEMISTRY METHOD 03/18/2025 8:14 AM [facility] Anion Gap 3 3 - 11 LAB CHEMISTRY METHOD 03/18/2025 8:14 AM [facility] Glucose 86 70 - 100 mg/dL LAB CHEMISTRY METHOD 03/18/2025 8:14 AM [facility] BUN 16 5 - 25 mg/dL LAB CHEMISTRY METHOD 03/18/2025 8:14 AM [facility] Creatinine 0.93 0.70 - 1.30 mg/dL LAB CHEMISTRY METHOD 03/18/2025 8:14 AM [facility] eGFR 106 >=60 mL/min/1. 73m2 LAB CHEMISTRY METHOD 03/18/2025 8:14 AM [facility] Comment:Calculation based on the Chronic Kidney Disease Epidemiology Collaboration (CKD-EPI) equation refit without adjustment for race. BUN/Creatinine Ratio 17.2 LAB CHEMISTRY METHOD 03/18/2025 8:14 AM [facility] Calcium 9.1 8.5 - 10.5 mg/dL LAB CHEMISTRY METHOD 03/18/2025 8:14 AM [facility] Blood Venous blood specimen / Unknown Venipuncture / Unknown 03/18/2025 6:20 AM EDT 03/18/2025 6:56 AM EDT us Anjali THORNTON LAB BLOOD ORDERABLES Final R esult [facility] [address] [place] [address], * Lavender tube (03/18/2025 6:17 AM EDT) Only the most recent of3 resultswithin the time period is included. Extra Tube Hold for add-ons. 03/18/2025 8:01 AM EDT [facility] Comment:Auto resulted. Blood Venous blood specimen / Unknown 03/18/2025 6:17 AM EDT 03/18/2025 6:57 AM EDT Becky Benavidez DO LAB BLOOD ORDERABLES Justine l Result Performing Organization Address City/[facility]/ZIP Co de Phone Number [facility] [address] [place] [address], [place] [phone] * Magnesium (03/17/2025 5:55 AM EDT) Only the most recent of4 resultswithin the time period is included. [facility] Magnesium 2.1 1.9 - 2.6 mg/dL LAB CHEMISTRY METHOD 03/17/2025 7:39 AM EDT [facility] Blood Venous blood specimen / Unknown Venipuncture / Unknown 03/17/2025 5:55 AM EDT 03/17/2025 6:29 AM EDT Anjali Gray PA LAB BLOOD ORDERABLES Final R esult Performing Organization Address [facility] Co de Phone Number [facility] [address] [place] [address], [place] [phone] * (ABNORMAL) Comprehensive metabolic panel (03/17/2025 5:55 AM EDT) Only the most recent of4 resultswithin the time period is included. [facility] Sodium 139 133 - 145 mmol/L LAB CHEMISTRY METHOD 03/17/2025 6:59 AM EDT [facility] Potassium 3.3(L) 3.5 - 5.5 mmol/L LAB CHEMISTRY METHOD 03/17/2025 6:59 AM EDT [facility] Chloride 104 96 - 110 mmol/L LAB CHEMISTRY METHOD 03/17/2025 6:59 AM [facility] CO2 30 21 - 32 mmol/L LAB CHEMISTRY METHOD 03/17/2025 6:59 AM [facility] Anion Gap 5 3 - 11 LAB CHEMISTRY METHOD 03/17/2025 6:59 AM [facility] Glucose 83 70 - 100 mg/dL LAB CHEMISTRY METHOD 03/17/2025 6:59 AM [facility] BUN 24 5 - 25 mg/dL LAB CHEMISTRY METHOD 03/17/2025 6:59 AM [facility] Creatinine 1.08 0.70 - 1.30 mg/dL LAB CHEMISTRY METHOD 03/17/2025 6:59 AM [facility] eGFR 88 >=60 mL/min/1. 73m2 LAB CHEMISTRY METHOD 03/17/2025 6:59 AM [facility] Comment:Calculation based on the Chronic Kidney Disease Epidemiology Collaboration (CKD-EPI) equation refit without adjustment for race. BUN/Creatinine Ratio 22.2 LAB CHEMISTRY METHOD 03/17/2025 6:59 AM [facility] Calcium 9.7 8.5 - 10.5 mg/dL LAB CHEMISTRY METHOD 03/17/2025 6:59 AM [facility] AST (SGOT) 15 10 - 42 unit/L LAB CHEMISTRY METHOD 03/17/2025 6:59 AM [facility] ALT (SGPT) 51 10 - 60 unit/L LAB CHEMISTRY METHOD 03/17/2025 6:59 AM [facility] Alkaline Phosphatase 82 42 - 121 unit/L LAB CHEMISTRY METHOD 03/17/2025 6:59 AM [facility] Total Protein 7.2 6.0 - 8.0 g/dL LAB CHEMISTRY METHOD 03/17/2025 6:59 AM [facility] Albumin 3.9 3.2 - 5.0 g/dL LAB CHEMISTRY METHOD 03/17/2025 6:59 AM EDT [facility] Total Bilirubin 0.4 0.0 - 1.4 mg/dL LAB CHEMISTRY METHOD 03/17/2025 6:59 AM T [facility] Blood Venous blood specimen / Unknown Venipuncture / Unknown 03/17/2025 5:55 AM EDT 03/17/2025 6:29 AM EDT us Anjali THORNTON LAB BLOOD ORDERABLES Final R esult [facility] [address] [place] [address], * (ABNORMAL) Complete blood count (03/17/2025 5:54 AM EDT) Only the most recent of4 resultswithin the time period is included. WBC 9.8 4.8 - 10.8 K/mcL LAB HEMETOLOGY METHOD 03/17/2025 6:43 AM [facility] RBC 4.00(L) 4.50 - 5.50 M/mcL LAB HEMETOLOGY METHOD 03/17/2025 6:43 AM [facility] Hemoglobin 11.7(L) 13.5 - 17.5 g/dL LAB HEMETOLOGY METHOD 03/17/2025 6:43 AM [facility] Hematocrit 35.2(L) 42.0 - 54.0 % LAB HEMETOLOGY METHOD 03/17/2025 6:43 AM [facility] MCV 88.7 79.0 - 98.0 FL LAB HEMETOLOGY METHOD 03/17/2025 6:43 AM [facility] MCH 29.5 27.0 - 32.0 pcg LAB HEMETOLOGY METHOD 03/17/2025 6:43 AM [facility] MCHC 33.2 32.0 - 37.0 g/dL LAB HEMETOLOGY METHOD 03/17/2025 6:43 AM EDT [facility] RDW 11.9 11.0 - 15.0 % LAB HEMETOLOGY METHOD 03/17/2025 6:43 AM EDT [facility] Platelets 230 130 - 400 K/mcL LAB HEMETOLOGY METHOD 03/17/2025 6:43 AM EDT [facility] MPV 9.7 7.0 - 11.0 FL LAB HEMETOLOGY METHOD 03/17/2025 6:43 AM EDT [facility] NRBC 0.0 <1.0 % LAB HEMETOLOGY METHOD 03/17/2025 6:43 AM EDT [facility] NRBC Absolute 0.00 <0.10 K/mcL LAB HEMETOLOGY METHOD 03/17/2025 6:43 AM EDT [facility] Blood Venous blood specimen / Unknown Venipuncture / Unknown 03/17/2025 5:54 AM EDT 03/17/2025 6:31 AM EDT us Anjali THORNTON LAB BLOOD ORDERABLES Final R esult [facility] [address] [place] [address], [place] [phone] * CT Head wo Contrast (03/11/2025 3:42 [...] Signed Date: 03/11/2025 15:50 ET Workstation ID: [id number] Transcribed By: Self Edit Transcribed Date: 03/11/2025 [...] Signed Date: 03/11/2025 15:50 ET Workstation ID: [id number] Transcribed By: Self Edit Transcribed Date: 03/11/2025 15:47 ET Tatiana THORNTON IMG CT PROCEDURES Final Resul t * (ABNORMAL) CBC auto differential (03/09/2025 6:14 AM EDT) WBC 10.1 4.8 - 10.8 K/mcL LAB HEMETOLOGY METHOD 03/09/2025 7:13 AM [facility] RBC 4.00(L) 4.50 - 5.50 M/mcL LAB HEMETOLOGY METHOD 03/09/2025 7:13 AM [facility] Hemoglobin 12.2(L) 13.5 - 17.5 g/dL LAB HEMETOLOGY METHOD 03/09/2025 7:13 AM [facility] Hematocrit 35.6(L) 42.0 - 54.0 % LAB HEMETOLOGY METHOD 03/09/2025 7:13 AM [facility] MCV 88.6 79.0 - 98.0 FL LAB HEMETOLOGY METHOD 03/09/2025 7:13 AM [facility] MCH 30.3 27.0 - 32.0 pcg LAB HEMETOLOGY METHOD 03/09/2025 7:13 AM [facility] MCHC 34.3 32.0 - 37.0 g/dL LAB HEMETOLOGY METHOD 03/09/2025 7:13 AM [facility] RDW 11.6 11.0 - 15.0 % LAB HEMETOLOGY METHOD 03/09/2025 7:13 AM [facility] Platelets 278 130 - 400 K/mcL LAB HEMETOLOGY METHOD 03/09/2025 7:13 AM [facility] MPV 9.6 7.0 - 11.0 FL LAB HEMETOLOGY METHOD 03/09/2025 7:13 AM [facility] NRBC 0.0 <1.0 % LAB HEMETOLOGY METHOD 03/09/2025 7:13 AM [facility] NRBC Absolute 0.00 <0.10 K/mcL LAB HEMETOLOGY METHOD 03/09/2025 7:13 AM [facility] Neutrophils Relative 46.6 % LAB HEMETOLOGY METHOD 03/09/2025 7:13 AM [facility] Lymphocytes Relative 39.5 % LAB HEMETOLOGY METHOD 03/09/2025 7:13 AM [facility] Monocytes Relative 10.8 % LAB HEMETOLOGY METHOD 03/09/2025 7:13 AM [facility] Eosinophils Relative 2.4 % LAB HEMETOLOGY METHOD 03/09/2025 7:13 AM [facility] Basophils Relative 0.4 % LAB HEMETOLOGY METHOD 03/09/2025 7:13 AM [facility] Immature Granulocytes Relative 0.3 % LAB HEMETOLOGY METHOD 03/09/2025 7:13 AM [facility] Neutrophils Absolute 4.68 1.50 - 7.00 K/mcL LAB HEMETOLOGY METHOD 03/09/2025 7:13 AM [facility] Lymphocytes Absolute 3.97 1.00 - 5.00 K/mcL LAB HEMETOLOGY METHOD 03/09/2025 7:13 AM [facility] Monocytes Absolute 1.09(H) 0.20 - 1.00 K/mcL LAB HEMETOLOGY METHOD 03/09/2025 7:13 AM [facility] Eosinophils Absolute 0.24 0.00 - 0.50 K/mcL LAB HEMETOLOGY METHOD 03/09/2025 7:13 AM [facility] Basophils Absolute 0.04 0.00 - 0.20 K/mcL LAB HEMETOLOGY METHOD 03/09/2025 7:13 AM EDT [facility] Immature Granulocytes Absolute 0.03 0.00 - 0.03 K/mcL LAB HEMETOLOGY METHOD 03/09/2025 7:13 AM EDT [facility] Blood Venous blood specimen / Unknown Venipuncture / Unknown 03/09/2025 6:14 AM EDT 03/09/2025 6:35 AM EDT Missy Tapia [employer] LAB BLOOD ORDERABLES Final Resul t Performing Organization Address [facility]/ZIP Co de Phone Number [facility] [address] [place] [address], [place] [phone] * Thyroid stimulating hormone with reflex to free t4 and free t3 (02/27/2025 9:11 AM EDT) TSH 0.60 0.40 - 4.00 mcIU/mL LAB CHEMISTRY METHOD 02/27/2025 11:03 AM EDT [facility] Blood Venous blood specimen / Unknown Venipuncture / Unknown 02/27/2025 9:11 AM EDT 02/27/2025 9:18 AM EDT Terrie Quinn NP LAB BLOOD ORDERABLES Final Result Performing Organization Address [facility]/ZIP Co de Phone Number [facility] [address] [place] [address], [place] [phone] from Last [address] [place] [address] [place] [address] [employer]AN Advance Directives Documents on File Type Date Recorded Patient Molder Setter Expl anation Advance Directives and Living Will [...] currently active code status orders. Care Teams Roll Hauler Relationship Specialty Start Date End Date Andres Rodríguez MD 175 [facility] [address] [place] [address] PCP - General Internal Medicine 03/09/25
== END 2025-05-24 11:22 | disposition home or self-care (01) ==
LOC: HO.HKA 10:48
PROVIDERS: PCP Internal Medicine; Visit Provider Internal Medicine Hypertension Specialist
DX: I10 Essential (primary) hypertension (principal)
CPT/HCPCS: 93790; 99214

== ENCOUNTER → 2025-05-24 10:48 | Outpatient (BNVA) | payer OTHER, SELFPAY | PROVIDERS: PCP Internal Medicine; Visit Provider Internal Medicine Hypertension Specialist | DX: Z71.2 Person consulting for explanation of examination or test findings (principal); I10 Essential (primary) hypertension | CPT/HCPCS: 99212 ==

== ENCOUNTER 2025-05-25 14:49 | Outpatient (AMB) | payer OTHER, SELFPAY ==
--- NOTE | 2025-05-25 15:02 | MHC.OFFVIS ---
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 MRI of brain report suggested that he had a left thalamic capsular hemorrhage and few months later, a small ischemic left putamen area infarct. He continues to suffer for right hemiparesis. [facility] Medical History (Updated 05/25/25 @ 15:22 by David Lazo MD) Hypercholesterolemia Acute CVA (cerebrovascular accident) Family History Father Hypertension Mother Hypertension Review of Systems Const Details: Difficulty walking. Assessment & Plan Assessment & Plan (1) Hemiparesis: Comment: MRI brain WO at [facility] in Apr 2025: Small left putamen and powell radiata acute ischemic infarct, evolution of left thalamic hemorrhage of February 2025 (reported) Code(s): G81.90 - Hemiplegia, unspecified affecting unspecified side Category: Medical Qualifiers: Hemiparesis etiology: late effect of cerebrovascular disease Cerebrovascular disease type: other nontraumatic intracranial hemorrhage Hemiparesis laterality: right dominant side Qualified Code(s): I69.251 - Hemiplegia and hemiparesis following other nontraumatic intracranial hemorrhage affecting right dominant side (2) Thalamic hemorrhage: Code(s): I61.0 - Nontraumatic intracerebral hemorrhage in hemisphere, subcortical Category: Medical (3) Multiple cerebral infarctions: Code(s): I63.9 - Cerebral infarction, unspecified Category: Medical (4) Hypertensive cardiovascular disease or syndrome: Code(s): I11.9 - Hypertensive heart disease without heart failure Category: Medical Qualifiers: Heart failure presence: unspecified whether heart failure present Qualified Code(s): I11.9 - Hypertensive heart disease without heart failure Plan Impression: a: Hypertension related atherosclerotic cerebrovascular disease b: Left thalamic hemorrhage in February 2025 c: Left putaminal and powell radiata area small ischemic infarct in Apr 2025 d: Dysarthria and mild right hemiparesis from strokes Rec: a: Main issue is HTN and its management b: Continue a rehab or exercise program c: No smoking or alcohol drinking d: Once BP is controlled, a baby aspirin daily may also help to reduce some risk of stroke Coding Level of Care Code Est Pt Level 4 (87284) Diagnoses Hemiparesis of right dominant side as late effect of other nontraumatic intracranial hemorrhage I69.251 Hemiparesis etiology: late effect of cerebrovascular disease Cerebrovascular disease type: other nontraumatic intracranial hemorrhage Hemiparesis laterality: right dominant side Thalamic hemorrhage I61.0 Multiple cerebral infarctions I63.9 Hypertensive heart disease, unspecified whether heart failure present I11.9 Heart failure presence: unspecified whether heart failure present
[2025-05-25 15:16] VITALS: PULSE 77
--- OUTSIDE RECORDS SUMMARY | 2025-05-25 17:18 | XMS_ITS | Clinical Summary ---
Author Organization [facility] Facility Address [address] [address] Care Team Providers Care Shaper Operator Name Role Phone Andres Rodríguez MD Primary Care Provider [phone] Social History Tobacco Use Types Packs/Day Years [...] Visit [facility] [address] [phone] Grey Roman MD [address] [phone] Health Maintenance Due Date Last Done Comments Hepatitis B Vaccine (1 of 3 - 19+ 3-dose series) 12/23 Pneumococcal Vaccine: Peds ( 0 to 5 Years) and At-Risk Patients (6 to 49 Years) (1 of 2 - PCV) 12/23/2002 Influenza Vaccine (#1) 2025 Insurance Medicaid [facility] Medicaid Care Teams Shaper Operator Relationship Specialty Start Date End Date Andres Rodríguez MD 175 [facility] 200 [place] [address] PCP - General Internal Medicine 05/20/25
--- OUTSIDE RECORDS SUMMARY | 2025-05-25 17:18 | XMS_ITS | Encounter Summary ---
Demographics Address [address] [place] [address] Home Phone Preferred Language es Marital Status Single Hoahaoism Affiliation Unknown Race Other Race Ethnic Group or Author Organization [employer] Address [address] [place] [address] Support Name Relationship Address Phone Kalie Rodriguez Emergency Contact Unknown [phone] Mis Llanes Unrelated friend Unknown [phone] Megan Guadarrama Mother [address] [place] [address] Care Team Providers Care Diploma Maker Name Role Phone Andres Rodríguez MD Primary Care Provider [phone] Reason for Visit * Reason Onset Date Comments Referral(tankroom worker) 05/04/2025 Encounter Details Date Type Department Care Team ([facility] st Contact Info) Description 05/04/2025 Telephone Internal Medicine - [place] [address] [place] [phone] Andres Rodríguez MD 175 [facility] 200 [place] [address] Social History Tobacco Use Types Packs/Day Years [...] called and requested a referral to a tankroom worker because he needs glasses due to not seeing well. Cb# [phone] documented in this encounter Plan of Treatment Upcoming Encounters Date Type Department Care Team (Late st Contact Info) Description 07/16/2025 9:45 AM EDT Office Visit Internal Medicine - [place] 175 [facility] 200 [place] [address] Andres Rodríguez MD 175 [facility] 200 [place] [address] documented as of this encounter Visit Diagnoses Not on filedocumented in this encounter Additional Health Concerns Assessment Noted Time PHQ-9 Depression Total Score: 0 03/16/20 25 4:04 PM EDT documented as of this encounter Care Teams Diploma Maker Relationship Specialty Start Date End Date Andres Rodríguez MD [address] [address] PCP - General Internal Medicine 03/09/25 documented as of this encounter
--- OUTSIDE RECORDS SUMMARY | 2025-05-25 17:18 | XMS_ITS | Encounter Summary ---
Demographics Address [address] [place] [address] Home Phone Preferred Language es Marital Status Single Adventism Affiliation Unknown Race Other Race Ethnic Group or Author Organization [employer] Address [address] [place] [address] Support Name Relationship Address Phone Kalie Rodriguez Emergency Contact Unknown [phone] Mis Llanes Unrelated friend Unknown [phone] Megan Guadarrama Mother [address] [place] [address] Care Team Providers Care Cruller Maker Machine Name Role Phone Andres Rodríguez MD Primary Care Provider [phone] Reason for Visit * Reason Onset Date Comments Request For Order(s) 05/19/2025 Ronald Cavanaugh al Home Care Order 04/21/25 Encounter Details Date Type Department Care Team (Late st Contact Info) Description 05/19/2025 Telephone Internal Medicine - [place] [address] [address] [place] [address] Juana Lopes [place] Social History [...] - 05/21/2025 10:25 AM EDT [facility]ide from [facility] - please look at the order that was signed and faxed Does it include order that patient is requesting out patient physical and occupational therapy Contact Fide [phone] * Juana Lopes MA - 05/20/2025 7:01 AM EDT [facility] Care Scanned into chart and faxed [phone] * Juana Lopes MA - 05/19/2025 9:43 AM EDT [facility] Order 04/21/25 Please sign & fax [phone] documented in this encounter Plan of Treatment Upcoming Encounters Date Type Department Care Team (Late st Contact Info) Description 07/16/2025 9:45 AM EDT Office Visit Internal Medicine - [address] [place] [address] Andres Rodríguez MD [address] [address] documented as of this encounter Visit Diagnoses Not on filedocumented in this encounter Additional Health Concerns Assessment Noted Time PHQ-9 Depression Total Score: 0 03/16/20 25 4:04 PM EDT documented as of this encounter Care Teams Cruller Maker Machine Relationship Specialty Start Date End Date Andres Rodríguez MD [address] [address] PCP - General Internal Medicine 03/09/25 documented as of this encounter
--- OUTSIDE RECORDS SUMMARY | 2025-05-25 17:18 | XMS_ITS | Encounter Summary ---
Demographics Address [address] [place] [address] Home Phone Preferred Language es Marital Status Single Sikh Affiliation Unknown Race Other Race Ethnic Group or Author Organization [employer] Address [address] [place] [address] Support Name Relationship Address Phone Kalie Rodriguez Emergency Contact Unknown [phone] Mis Llanes Unrelated friend Unknown [phone] Megan Guadarrama Mother [address] [place] [address] Care Team Providers Care Mail Handlers Supervisor Name Role Phone Andres Rodríguez MD Primary Care Provider [phone] Encounter Details Date Type Department Care Team (Late st Contact Info) Description 05/11/2025 Telephone Internal Medicine - [place] [address] [place] [address] Andres Rodríguez MD [address] [place] [address] Social History Tobacco Use Types Packs/Day Years [...] will schedule appt for him Howerver via full time staff interpreter provided [address] - phone number to call himself to schedule FYI documented in this encounter Plan of Treatment Upcoming Encounters Date Type Department Care Team (Late st Contact Info) Description 07/16/2025 9:45 AM EDT Office Visit Internal Medicine - [place] 175 [facility] [address] [place] [address] Andres Rodríguez MD [address] [address] documented as of this encounter Visit Diagnoses Not on filedocumented in this encounter Additional Health Concerns Assessment Noted Time PHQ-9 Depression Total Score: 0 03/16/20 4:04 PM EDT documented as of this encounter Care Teams Mail Handlers Supervisor Relationship Specialty Start Date End Date Andres Rodríguez MD [address] [address] PCP - General Internal Medicine 03/09/25 documented as of this encounter
--- OUTSIDE RECORDS SUMMARY | 2025-05-25 17:18 | XMS_ITS | Clinical Summary ---
Author Organization [facility] Address [address] [place] [address] Phone Care Team Providers Care Appraiser Land Name Role Phone Andres Rodríguez MD Primary Care Provider [phone] Allergies No known active allergies Medications fluticasone [...] Problem Noted Date Diagnosed Date Intracranial bleed ([facility] V24, [facility] V28) Encounters Date Type Department Care Team Description 05/19/2025 Telephone Internal Medicine [address] [address] Juana Lopes [place] 05/14/2025 Telephone Internal Medicine [address] [address] Andres Rodríguez MD 05/13/2025 [place] [facility] [address] [address] Andres Rodríguez MD 05/11/2025 Telephone Internal Medicine [address] [address] Andres Rodríguez MD 05/07/2025 Telephone Internal Medicine [address] [address] Andres Rodríguez MD 05/06/2025 Telephone Internal Medicine [address] [address] Andres Rodríguez MD 05/04/2025 Telephone Internal Medicine [address] [address] Andres Rodríguez MD 04/29/2025 1:30 PM EDT Office Visit Internal Medicine [facility] [address] [address] Andres Rodríguez MD Acute CVA (cerebrovascular accident) (CMS/HCC V24, CMS/HCC V28) (Primary Dx); Primary hypertension; Hypercholesterolemi a; Hospital discharge follow-up 04/27/2025 Telephone Internal Medicine [facility] [address] [address] Andres Rodríguez MD 04/22/2025 Telephone Internal Medicine [address] [address] Andres Rodríguez MD 04/21/2025 Telephone Internal Medicine [address] [address] Andres Rodríguez MD 04/20/2025 Telephone Internal [address] [address] Andres Rodríguez MD 04/12/2025 11:15 AM EDT Office Visit Internal [address] [address] Andres Rodríguez MD Hospital discharge follow-up (Primary Dx); Thalamic hemorrhage with stroke (CMS/HCC V24, CMS/HCC V28); Hypertension, unspecified type; Normocytic anemia; Hearing loss associated with syndrome, unspecified laterality; Pedal edema 04/12/2025 Telephone Internal Medicine [address] [address] Andres Rodríguez MD 03/17/2025 Plan of Care Documentation [facility] [address] [place] [address] 03/10/2025 Plan of Care Documentation [facility] [address] [place] [address] 03/03/2025 Plan of Care Documentation [facility] [address] [place] [address] 02/26/2025 1:59 PM EDT - 03/18/2025 12:30 PM EDT Hospital Encounter [facility] [address] [place] [address] Becky Benavidez DO Intracranial bleed ([facility] V24, [facility] V28) [I62.9] (Primary Dx) Discharge Disposition: Home-Health Care Svc from Last 3 Months Medical History Medical History Date Comments HTN (hypertension) CVA (cerebral vascular accident) ([facility] V24, [facility] [place] V28) Social History Tobacco Use Types Packs/Day [...] AM EDT Office Visit Internal Medicine - [place] 175 [facility] [address] [place] [phone] Andres Rodríguez MD 175 [facility] [address] [place] [address] Health Maintenance Due Date Last Done Comments [...] LAB CHEMISTRY METHOD 03/18/2025 8:14 AM EDT [facility] Potassium 3.7 3.5 - 5.5 mmol/L LAB CHEMISTRY METHOD 03/18/2025 8:14 AM EDT [facility] Chloride 109 96 - 110 mmol/L LAB CHEMISTRY METHOD 03/18/2025 8:14 AM [facility] CO2 32 21 - 32 mmol/L LAB CHEMISTRY METHOD 03/18/2025 8:14 AM [facility] Anion Gap 3 3 - 11 LAB CHEMISTRY METHOD 03/18/2025 8:14 AM [facility] Glucose 86 70 - 100 mg/dL LAB CHEMISTRY METHOD 03/18/2025 8:14 AM [facility] BUN 16 5 - 25 mg/dL LAB CHEMISTRY METHOD 03/18/2025 8:14 AM [facility] Creatinine 0.93 0.70 - 1.30 mg/dL LAB CHEMISTRY METHOD 03/18/2025 8:14 AM [facility] eGFR 106 >=60 mL/min/1. 73m2 LAB CHEMISTRY METHOD 03/18/2025 8:14 AM [facility] Comment:Calculation based on the Chronic Kidney Disease Epidemiology Collaboration (CKD-EPI) equation refit without adjustment for race. BUN/Creatinine Ratio 17.2 LAB CHEMISTRY METHOD 03/18/2025 8:14 AM [facility] Calcium 9.1 8.5 - 10.5 mg/dL LAB CHEMISTRY METHOD 03/18/2025 8:14 AM [facility] Blood Venous blood specimen / Unknown Venipuncture / Unknown 03/18/2025 6:20 AM EDT 03/18/2025 6:56 AM EDT us Anjali THORNTON LAB BLOOD ORDERABLES Final R esult [facility] [address] [place] [address], * Lavender tube (03/18/2025 6:17 AM EDT) Only the most recent of3 resultswithin the time period is included. Extra Tube Hold for add-ons. 03/18/2025 8:01 AM EDT [facility] Comment:Auto resulted. Blood Venous blood specimen / Unknown 03/18/2025 6:17 AM EDT 03/18/2025 6:57 AM EDT Becky Benavidez DO LAB BLOOD ORDERABLES Justine l Result Performing Organization Address City/[facility]/ZIP Co de Phone Number [facility] [address] [place] [address], [place] [phone] * Magnesium (03/17/2025 5:55 AM EDT) Only the most recent of4 resultswithin the time period is included. [facility] Magnesium 2.1 1.9 - 2.6 mg/dL LAB CHEMISTRY METHOD 03/17/2025 7:39 AM EDT [facility] Blood Venous blood specimen / Unknown Venipuncture / Unknown 03/17/2025 5:55 AM EDT 03/17/2025 6:29 AM EDT Anjali Gray PA LAB BLOOD ORDERABLES Final R esult Performing Organization Address [facility] Co de Phone Number [facility] [address] [place] [address], [place] [phone] * (ABNORMAL) Comprehensive metabolic panel (03/17/2025 5:55 AM EDT) Only the most recent of4 resultswithin the time period is included. [facility] Sodium 139 133 - 145 mmol/L LAB CHEMISTRY METHOD 03/17/2025 6:59 AM EDT [facility] Potassium 3.3(L) 3.5 - 5.5 mmol/L LAB CHEMISTRY METHOD 03/17/2025 6:59 AM EDT [facility] Chloride 104 96 - 110 mmol/L LAB CHEMISTRY METHOD 03/17/2025 6:59 AM [facility] CO2 30 21 - 32 mmol/L LAB CHEMISTRY METHOD 03/17/2025 6:59 AM [facility] Anion Gap 5 3 - 11 LAB CHEMISTRY METHOD 03/17/2025 6:59 AM [facility] Glucose 83 70 - 100 mg/dL LAB CHEMISTRY METHOD 03/17/2025 6:59 AM [facility] BUN 24 5 - 25 mg/dL LAB CHEMISTRY METHOD 03/17/2025 6:59 AM [facility] Creatinine 1.08 0.70 - 1.30 mg/dL LAB CHEMISTRY METHOD 03/17/2025 6:59 AM [facility] eGFR 88 >=60 mL/min/1. 73m2 LAB CHEMISTRY METHOD 03/17/2025 6:59 AM [facility] Comment:Calculation based on the Chronic Kidney Disease Epidemiology Collaboration (CKD-EPI) equation refit without adjustment for race. BUN/Creatinine Ratio 22.2 LAB CHEMISTRY METHOD 03/17/2025 6:59 AM [facility] Calcium 9.7 8.5 - 10.5 mg/dL LAB CHEMISTRY METHOD 03/17/2025 6:59 AM [facility] AST (SGOT) 15 10 - 42 unit/L LAB CHEMISTRY METHOD 03/17/2025 6:59 AM [facility] ALT (SGPT) 51 10 - 60 unit/L LAB CHEMISTRY METHOD 03/17/2025 6:59 AM [facility] Alkaline Phosphatase 82 42 - 121 unit/L LAB CHEMISTRY METHOD 03/17/2025 6:59 AM [facility] Total Protein 7.2 6.0 - 8.0 g/dL LAB CHEMISTRY METHOD 03/17/2025 6:59 AM [facility] Albumin 3.9 3.2 - 5.0 g/dL LAB CHEMISTRY METHOD 03/17/2025 6:59 AM EDT [facility] Total Bilirubin 0.4 0.0 - 1.4 mg/dL LAB CHEMISTRY METHOD 03/17/2025 6:59 AM T [facility] Blood Venous blood specimen / Unknown Venipuncture / Unknown 03/17/2025 5:55 AM EDT 03/17/2025 6:29 AM EDT us Anjali THORNTON LAB BLOOD ORDERABLES Final R esult [facility] [address] [place] [address], * (ABNORMAL) Complete blood count (03/17/2025 5:54 AM EDT) Only the most recent of4 resultswithin the time period is included. WBC 9.8 4.8 - 10.8 K/mcL LAB HEMETOLOGY METHOD 03/17/2025 6:43 AM [facility] RBC 4.00(L) 4.50 - 5.50 M/mcL LAB HEMETOLOGY METHOD 03/17/2025 6:43 AM [facility] Hemoglobin 11.7(L) 13.5 - 17.5 g/dL LAB HEMETOLOGY METHOD 03/17/2025 6:43 AM [facility] Hematocrit 35.2(L) 42.0 - 54.0 % LAB HEMETOLOGY METHOD 03/17/2025 6:43 AM [facility] MCV 88.7 79.0 - 98.0 FL LAB HEMETOLOGY METHOD 03/17/2025 6:43 AM [facility] MCH 29.5 27.0 - 32.0 pcg LAB HEMETOLOGY METHOD 03/17/2025 6:43 AM [facility] MCHC 33.2 32.0 - 37.0 g/dL LAB HEMETOLOGY METHOD 03/17/2025 6:43 AM EDT [facility] RDW 11.9 11.0 - 15.0 % LAB HEMETOLOGY METHOD 03/17/2025 6:43 AM EDT [facility] Platelets 230 130 - 400 K/mcL LAB HEMETOLOGY METHOD 03/17/2025 6:43 AM EDT [facility] MPV 9.7 7.0 - 11.0 FL LAB HEMETOLOGY METHOD 03/17/2025 6:43 AM EDT [facility] NRBC 0.0 <1.0 % LAB HEMETOLOGY METHOD 03/17/2025 6:43 AM EDT [facility] NRBC Absolute 0.00 <0.10 K/mcL LAB HEMETOLOGY METHOD 03/17/2025 6:43 AM EDT [facility] Blood Venous blood specimen / Unknown Venipuncture / Unknown 03/17/2025 5:54 AM EDT 03/17/2025 6:31 AM EDT us Anjali THORNTON LAB BLOOD ORDERABLES Final R esult [facility] [address] [place] [address], [place] [phone] * CT Head wo Contrast (03/11/2025 3:42 [...] Signed Date: 03/11/2025 15:50 ET Workstation ID: [id number] Transcribed By: Self Edit Transcribed Date: 03/11/2025 [...] Signed Date: 03/11/2025 15:50 ET Workstation ID: [id number] Transcribed By: Self Edit Transcribed Date: 03/11/2025 15:47 ET Tatiana THORNTON IMG CT PROCEDURES Final Resul t * (ABNORMAL) CBC auto differential (03/09/2025 6:14 AM EDT) WBC 10.1 4.8 - 10.8 K/mcL LAB HEMETOLOGY METHOD 03/09/2025 7:13 AM [facility] RBC 4.00(L) 4.50 - 5.50 M/mcL LAB HEMETOLOGY METHOD 03/09/2025 7:13 AM [facility] Hemoglobin 12.2(L) 13.5 - 17.5 g/dL LAB HEMETOLOGY METHOD 03/09/2025 7:13 AM [facility] Hematocrit 35.6(L) 42.0 - 54.0 % LAB HEMETOLOGY METHOD 03/09/2025 7:13 AM [facility] MCV 88.6 79.0 - 98.0 FL LAB HEMETOLOGY METHOD 03/09/2025 7:13 AM [facility] MCH 30.3 27.0 - 32.0 pcg LAB HEMETOLOGY METHOD 03/09/2025 7:13 AM [facility] MCHC 34.3 32.0 - 37.0 g/dL LAB HEMETOLOGY METHOD 03/09/2025 7:13 AM [facility] RDW 11.6 11.0 - 15.0 % LAB HEMETOLOGY METHOD 03/09/2025 7:13 AM [facility] Platelets 278 130 - 400 K/mcL LAB HEMETOLOGY METHOD 03/09/2025 7:13 AM [facility] MPV 9.6 7.0 - 11.0 FL LAB HEMETOLOGY METHOD 03/09/2025 7:13 AM [facility] NRBC 0.0 <1.0 % LAB HEMETOLOGY METHOD 03/09/2025 7:13 AM [facility] NRBC Absolute 0.00 <0.10 K/mcL LAB HEMETOLOGY METHOD 03/09/2025 7:13 AM [facility] Neutrophils Relative 46.6 % LAB HEMETOLOGY METHOD 03/09/2025 7:13 AM [facility] Lymphocytes Relative 39.5 % LAB HEMETOLOGY METHOD 03/09/2025 7:13 AM [facility] Monocytes Relative 10.8 % LAB HEMETOLOGY METHOD 03/09/2025 7:13 AM [facility] Eosinophils Relative 2.4 % LAB HEMETOLOGY METHOD 03/09/2025 7:13 AM [facility] Basophils Relative 0.4 % LAB HEMETOLOGY METHOD 03/09/2025 7:13 AM [facility] Immature Granulocytes Relative 0.3 % LAB HEMETOLOGY METHOD 03/09/2025 7:13 AM [facility] Neutrophils Absolute 4.68 1.50 - 7.00 K/mcL LAB HEMETOLOGY METHOD 03/09/2025 7:13 AM [facility] Lymphocytes Absolute 3.97 1.00 - 5.00 K/mcL LAB HEMETOLOGY METHOD 03/09/2025 7:13 AM [facility] Monocytes Absolute 1.09(H) 0.20 - 1.00 K/mcL LAB HEMETOLOGY METHOD 03/09/2025 7:13 AM [facility] Eosinophils Absolute 0.24 0.00 - 0.50 K/mcL LAB HEMETOLOGY METHOD 03/09/2025 7:13 AM [facility] Basophils Absolute 0.04 0.00 - 0.20 K/mcL LAB HEMETOLOGY METHOD 03/09/2025 7:13 AM EDT [facility] Immature Granulocytes Absolute 0.03 0.00 - 0.03 K/mcL LAB HEMETOLOGY METHOD 03/09/2025 7:13 AM EDT [facility] Blood Venous blood specimen / Unknown Venipuncture / Unknown 03/09/2025 6:14 AM EDT 03/09/2025 6:35 AM EDT Missy Tapia TENNIS COACH LAB BLOOD ORDERABLES Final Resul t Performing Organization Address [facility]/ZIP Co de Phone Number [facility] [address] [place] [address], [place] [phone] * Thyroid stimulating hormone with reflex to free t4 and free t3 (02/27/2025 9:11 AM EDT) TSH 0.60 0.40 - 4.00 mcIU/mL LAB CHEMISTRY METHOD 02/27/2025 11:03 AM EDT [facility] Blood Venous blood specimen / Unknown Venipuncture / Unknown 02/27/2025 9:11 AM EDT 02/27/2025 9:18 AM EDT Terrie Quinn NP LAB BLOOD ORDERABLES Final Result Performing Organization Address [facility]/ZIP Co de Phone Number [facility] [address] [place] [address], [place] [phone] from Last [address] [place] [place] [address] [employer]ALTH PLAN Advance Directives Documents on File Type Date Recorded Patient Bottle Feeder Expl anation Advance Directives and Living Will [...] currently active code status orders. Care Teams Appraiser Land Relationship Specialty Start Date End Date Andres Rodríguez MD 175 [facility] [address] [place] [address] PCP - General Internal Medicine 03/09/25
--- OUTSIDE RECORDS SUMMARY | 2025-05-25 17:18 | XMS_ITS | Encounter Summary ---
Demographics Address [address] [place] [address] Home Phone Preferred Language es Marital Status Single Sabianist Affiliation Unknown Race Other Race Ethnic Group or Author Organization [employer] Address [address] [place] [address] Support Name Relationship Address Phone Kalie Rodriguez Emergency Contact Unknown [phone] Mis Llanes Unrelated friend Unknown [phone] Megan Guadarrama Mother [address] [place] [address] Care Team Providers Care Graduating Machine Operator Name Role Phone Andres Rodríguez MD Primary Care Provider [phone] Encounter Details Date Type Department Care Team (Late st Contact Info) Description 05/13/2025 Telephone Internal Medicine - [place] [address] [place] [address] Andres Rodríguez MD [address] [place] [address] Social History Tobacco Use Types Packs/Day Years [...] an out patient - request from [facility]. If so order to be placed documented in this encounter Plan of Treatment Upcoming Encounters Date Type Department Care Team (Late st Contact Info) Description 07/16/2025 9:45 AM EDT Office Visit Internal Medicine - [place] [address] [address] Andres Rodríguez MD [address] [address] documented as of this encounter Visit Diagnoses Not on filedocumented in this encounter Additional Health Concerns Assessment Noted Time PHQ-9 Depression Total Score: 0 03/16/20 4:04 PM EDT documented as of this encounter Care Teams Graduating Machine Operator Relationship Specialty Start Date End Date Andres Rodríguez MD [address] [address] PCP - General Internal Medicine 03/09/25 documented as of this encounter
== END 2025-05-25 16:29 | disposition home or self-care (01) ==
LOC: HO.HSM 14:50
PROVIDERS: PCP Internal Medicine; Visit Provider Psychiatry & Neurology Neurology
DX: I69.251 Hemiplegia and hemiparesis following other nontraumatic intracranial hemorrhage affecting right dominant side (principal); I61.0 Nontraumatic intracerebral hemorrhage in hemisphere, subcortical; I63.9 Cerebral infarction, unspecified; I11.9 Hypertensive heart disease without heart failure
CPT/HCPCS: 99214

== ENCOUNTER → 2025-05-25 14:49 | Outpatient (BNVA) | payer OTHER, SELFPAY | PROVIDERS: PCP Internal Medicine; Visit Provider Psychiatry & Neurology Neurology | DX: I69.251 Hemiplegia and hemiparesis following other nontraumatic intracranial hemorrhage affecting right dominant side (principal); I61.0 Nontraumatic intracerebral hemorrhage in hemisphere, subcortical; I63.9 Cerebral infarction, unspecified; I11.9 Hypertensive heart disease without heart failure; Z79.82 Long term (current) use of aspirin | CPT/HCPCS: 99212 ==